=== PATIENT | female | born 1935 | race African-American/Black ===

== ENCOUNTER 2023-06-04 13:24 | Emergency (ER) | payer MEDICARE, MEDICAID ==
[~2023-06-04] VITALS: Ht 172.7 cm; Wt 70.0 kg
[2023-06-04 13:27] VITALS: O2SAT 100
[2023-06-04] MEDS ORDERED: ONDANSETRON HCL 4MG/2ML INJ IV STA (13:35)
[2023-06-04 13:55] LABS: BASOPHILS % 0.2 % (0.0-2.0); EOSINOPHILS % 1.7 % (0.0-5.0); HEMATOCRIT. 40.7 % (36.0-48.0); HEMOGLOBIN. 13.4 g/dL (12.0-16.0); LYMPHOCYTES % 34.7 % (20.0-50.0); MEAN CORPUSCULAR HEMOGLOBIN 28.2 pg (28.0-32.0); MEAN CORPUSCULAR HGB CONC 32.9 g/dL (31.0-37.0); MEAN CORPUSCULAR VOLUME 85.7 fL (81.0-99.0); MONOCYTES % 10.5 % (2.0-8.0); NEUTROPHILS % 52.9 % (40.0-76.0); PLATELET 256 x1000/uL (130-400); RED BLOOD CELL COUNT 4.75 mill/uL (4.2-5.4); RED CELL DISTRIBUTION WIDTH 13.6 % (11.6-14.6); WHITE BLOOD COUNT 3.7 x1000/uL (4.5-11.0)
[2023-06-04 14:05] VITALS: BP 167/72; PULSE 85; RESP 20; TEMP 98.1
[2023-06-04 14:05] LABS: PROTHROMBIN TIME 10.7 sec (9.6-11.0)
[2023-06-04 14:26] LABS: ALANINE AMINOTRANSFERASE 23 IU/L (10-49); ALBUMIN 4.3 g/dL (3.2-4.8); ASPARTATE AMINOTRANSFERASE 20 IU/L (<34); BILIRUBIN TOTAL 0.7 mg/dL (0.1-1.0); CALCIUM 9.9 mg/dL (8.7-10.4); CARBON DIOXIDE 27 mEq/L (21-32); CHLORIDE 98 mEq/L (98-107); CREATININE 0.8 mg/dL (0.6-1.0); GLUCOSE 299 mg/dL (70-105); POTASSIUM 3.1 mEq/L (3.5-5.1); PROTEIN TOTAL 8.4 g/dL (6.0-8.3); SODIUM 131 mEq/L (136-145); UREA NITROGEN BLOOD 11 mg/dL (9-23)
[2023-06-04] MEDS ORDERED: ONDA4TAB11 PO (16:27)
== END 2023-06-04 20:00 | disposition home or self-care (01) ==
LOC: ER 13:24
DX: R11.2 Nausea with vomiting, unspecified (principal); E11.9 Type 2 diabetes mellitus without complications; I10 Essential (primary) hypertension; Z98.890 Other specified postprocedural states; Z88.8 Allergy status to other drugs, medicaments and biological substances
CPT/HCPCS: 99285; 74177; 96374; 80053; 83880; 83605; 83690; 85025; 85610; 36415; 93005; Q9967; J2405

== ENCOUNTER 2023-11-11 04:20 | Emergency (ER) | payer MEDICARE, MEDICAID ==
[~2023-11-11] VITALS: Ht 167.6 cm; Wt 65.0 kg
[~2023-11-11 04:20] MED LIST: ONDA4TAB11 PO
[2023-11-11 04:21] VITALS: O2SAT 97
[2023-11-11 05:54] LABS: CLARITY URINE CLEAR (CLEAR); COLOR URINE YELLOW (YELLOW); GLUCOSE URINE 1+ (NEGATIVE); KETONES URINE TRACE (NEGATIVE); LEUKOCYTE ESTERASE URINE TRACE (NEGATIVE); NITRITE URINE NEGATIVE (NEGATIVE); OCCULT BLOOD URINE NEGATIVE (NEGATIVE); PROTEIN URINE 2+ (NEGATIVE); SPECIFIC GRAVITY URINE 1.011 (1.005-1.030); UROBILINOGEN URINE 0.2 E.U./dL (0.2-1.0)
[2023-11-11 05:54] LABS: HEMATOCRIT. 39.6 % (36.0-48.0); HEMOGLOBIN. 13.1 g/dL (12.0-16.0); MEAN CORPUSCULAR HEMOGLOBIN 28.2 pg (28.0-32.0); MEAN CORPUSCULAR HGB CONC 33.1 g/dL (31.0-37.0); MEAN CORPUSCULAR VOLUME 85.2 fL (81.0-99.0); MEAN PLATELET VOLUME 8.3 fl (7.4-10.4); PLATELET 279 x1000/uL (130-400); RED BLOOD CELL COUNT 4.64 mill/uL (4.2-5.4); RED CELL DISTRIBUTION WIDTH 14.7 % (11.6-14.6); WHITE BLOOD COUNT 5.1 x1000/uL (4.5-11.0)
[2023-11-11 05:59] LABS: CHLORIDE 98 mEq/L (98-107); POTASSIUM 3.5 mEq/L (3.5-5.1); SODIUM 131 mEq/L (136-145)
[2023-11-11 06:00] LABS: CALCIUM 10.2 mg/dL (8.7-10.4); CARBON DIOXIDE 26 mEq/L (21-32); DIFFERENTIAL COMMENT 1
[2023-11-11 06:05] LABS: CREATININE 0.9 mg/dL (0.6-1.0); GLUCOSE 154 mg/dL (70-105); UREA NITROGEN BLOOD 13 mg/dL (9-23)
[2023-11-11 06:34] LABS: RBC URINE 0-2 /hpf (0-2); SQUAMOUS EPITHELIAL CELL URINE FEW /lpf (RARE/1+)
[2023-11-11 06:35] LABS: BACTERIA URINE NONE SEEN
[2023-11-11] MEDS ORDERED: NITR-87 MT (08:45)
[2023-11-11] MEDS: NITROFURANTOIN 100MG M/M CAPSULE PO ONE (08:58)
[2023-11-11 09:09] VITALS: BP 124/78; PULSE 78; RESP 12; TEMP 97.9
[2023-11-11 09:22] LABS: PLATELET ESTIMATE NORMAL
== END 2023-11-11 09:27 | disposition home or self-care (01) ==
LOC: ER 04:26
DX: E11.649 Type 2 diabetes mellitus with hypoglycemia without coma (principal); N39.0 Urinary tract infection, site not specified; Z91.09 Other allergy status, other than to drugs and biological substances
CPT/HCPCS: 36415; 80048; 81003; 82962; 85025; 99283

== ENCOUNTER 2023-11-12 07:35 | Emergency (ER) | payer MEDICARE, MEDICAID ==
[~2023-11-12] VITALS: Ht 167.6 cm; Wt 60.0 kg
[~2023-11-12 07:35] MED LIST changes: +NITR-87 MT
[2023-11-12 07:37] VITALS: O2SAT 100
[2023-11-12 08:14] LABS: BASOPHILS % 1.1 % (0.0-2.0); DIFFERENTIAL COMMENT 0; EOSINOPHILS % 0.7 % (0.0-5.0); HEMOGLOBIN. 13.4 g/dL (12.0-16.0); LYMPHOCYTES % 27.5 % (20.0-50.0); MEAN CORPUSCULAR HEMOGLOBIN 27.8 pg (28.0-32.0); MEAN CORPUSCULAR HGB CONC 32.7 g/dL (31.0-37.0); MEAN CORPUSCULAR VOLUME 85.3 fL (81.0-99.0); MEAN PLATELET VOLUME 8.2 fl (7.4-10.4); MONOCYTES % 9.3 % (2.0-8.0); NEUTROPHILS % 61.4 % (40.0-76.0); PLATELET 275 x1000/uL (130-400); RED BLOOD CELL COUNT 4.81 mill/uL (4.2-5.4); RED CELL DISTRIBUTION WIDTH 14.6 % (11.6-14.6); WHITE BLOOD COUNT 6.3 x1000/uL (4.5-11.0)
[2023-11-12 08:22] LABS: CHLORIDE 98 mEq/L (98-107); POTASSIUM 4.1 mEq/L (3.5-5.1); SODIUM 129 mEq/L (136-145)
[2023-11-12 08:23] LABS: CARBON DIOXIDE 23 mEq/L (21-32)
[2023-11-12 08:28] LABS: CREATININE 0.8 mg/dL (0.6-1.0); GLUCOSE 64 mg/dL (70-105); UREA NITROGEN BLOOD 13 mg/dL (9-23)
[2023-11-12 08:30] LABS: CREATINE KINASE 153 IU/L (34-145)
[2023-11-12 08:33] LABS: THYROID STIMULATING HORMONE 1.39 uIU/mL (0.55-4.78)
[2023-11-12 08:56] LABS: ETHANOL BLOOD < 10 mg/dL (<10)
[2023-11-12] MEDS: SODIUM CHLORIDE 0.9% 1,000 ML IV ONE (09:33)
[2023-11-12 11:28] LABS: CLARITY URINE CLEAR (CLEAR); COLOR URINE YELLOW (YELLOW); GLUCOSE URINE NEGATIVE (NEGATIVE); KETONES URINE NEGATIVE (NEGATIVE); LEUKOCYTE ESTERASE URINE NEGATIVE (NEGATIVE); NITRITE URINE NEGATIVE (NEGATIVE); OCCULT BLOOD URINE TRACE (NEGATIVE); PROTEIN URINE TRACE (NEGATIVE); SPECIFIC GRAVITY URINE 1.005 (1.005-1.030); UROBILINOGEN URINE 0.2 E.U./dL (0.2-1.0)
[2023-11-12 11:42] LABS: SQUAMOUS EPITHELIAL CELL URINE FEW /lpf (RARE/1+)
[2023-11-12 11:43] LABS: *AMPHETAMINES SCREEN URINE NEGATIVE (NEGATIVE); BACTERIA URINE TRACE
[2023-11-12 11:44] LABS: *BARBITURATES SCREEN URINE NEGATIVE (NEGATIVE); *BENZODIAZEPINES SCREEN URINE NEGATIVE (NEGATIVE); *COCAINE SCREEN URINE NEGATIVE (NEGATIVE); ECSTASY MDMA SCREEN URINE NEGATIVE (NEGATIVE); METHADONE URINE SCREEN NEGATIVE (NEGATIVE); OPIATES URINE SCREEN NEGATIVE (NEGATIVE); PHENCYCLIDINE URINE SCREEN NEGATIVE (NEGATIVE)
[2023-11-12 11:48] LABS: RBC URINE 0-2 /hpf (0-2); WBC URINE 0-2 /hpf (0-2)
[2023-11-12 12:07] VITALS: BP 131/89; PULSE 86; RESP 18; TEMP 98.6
== END 2023-11-12 12:26 | disposition home or self-care (01) ==
LOC: ER 08:05
DX: E11.649 Type 2 diabetes mellitus with hypoglycemia without coma (principal); I10 Essential (primary) hypertension; Z98.890 Other specified postprocedural states
CPT/HCPCS: 80305; 80048; 81003; 80320; 82550; 82962; 83880; 83605; 84443; 85025; 36415; 71045; 93005; 99285; J7030; C1893; G0480